=== PATIENT | female | born 1985 | race Caucasian/White ===

== ENCOUNTER 2019-05-05 08:20 | Emergency (ER) | payer OTHER ==
[~2019-05-05] VITALS: Ht 165.1 cm; Wt 88.0 kg
--- NOTE | 2019-05-05 08:51 | NUR ---
ER PROVIDER AT BEDSIDE, PT ASSESSMENT POC DISCUSSED AND ORDERS REC'D. PT ON MONITORS, VSS. CALL LIGHT W/I REACH, AT BEDSIDE.
[2019-05-05] MEDS ORDERED: MAALOX/HYOSCYAMINE/LIDOCAINE 45 ML BTL ONE (08:56)
[2019-05-05 08:57] VITALS: BP 122/79
[2019-05-05] MEDS ORDERED: MAALOX/HYOSCYAMINE/LIDOCAINE 45 ML BTL PO ONE (09:00)
--- NOTE | 2019-05-05 10:01 | NUR ---
REPROT RECIEVED FROM EVELYN SANTIAGO. ASSUMED CARE OF PT.
== END 2019-05-05 10:25 | disposition home or self-care (01) ==
LOC: ED 10:15
DX: F41.1 Generalized anxiety disorder (principal); R06.4 Hyperventilation; R07.89 Other chest pain; Z87.891 Personal history of nicotine dependence
CPT/HCPCS: 93005; 99283